=== PATIENT | female | born 1955 | race Caucasian/White ===

== ENCOUNTER → 2016-04-30 | Outpatient (REF) | payer BC | LOC: M SFHCWAGY 12:35 | PROVIDERS: ATTEND Nurse Practitioner Women's Health | DX: Z12.4 Encounter for screening for malignant neoplasm of cervix (principal); N88.8 Other specified noninflammatory disorders of cervix uteri ==

== ENCOUNTER → 2016-08-06 | Outpatient (CLI) | payer BC ==
--- NOTE | 2016-08-06 10:03 | REP ---
UNILATERAL MAMMOGRAM RIGHT BREAST: Unilateral mammogram right breast performed in this patient with a history of left breast cancer and mastectomy. Comparison 08/03/2015 as well as other prior exams. Mild scattered fibroglandular tissue is unchanged. There is no new mass or clustered microcalcifications. IMPRESSION: ACR 1 negative mammogram right breast in this patient status post left mastectomy. Suggest followup mammogram in one year. This mammogram was interpreted with the aid of an FDA-approved computer-aided detection system. The patient states she/he had a clinical breast exam in 04/2016. The patient letter being requested is M1. Signed by Johnathan Liu MD 08/06/2016 05:41 P
--- NOTE | 2016-08-07 09:22 | DEXA ---
AP SPINE L1 - L4 0.970 -1.8 -0.7 LT FEMUR TOTAL 0.825 -1.5 -0.6 RT FEMUR TOTAL 0.862 -1.2 -0.3 TOTAL BODY TOTAL OTHER DUAL FEMUR FRAX* ASSESSMENT Risk factors: Broken bone as adult. 10 year probability of fracture Major osteoporotic fracture 18.7 % Hip fracture 3.2 % COMMENTS: There is low bone density of the spine and hips. The decreased density of the spine does represent a significant change. The decreased density of the left hip does not represent a significant change. The decreased density of the right hip does not represent a significant change. The density of the spine has decreased 17.6% since the initial exam on 2003. The spine density has decreased 5.0% since the most recent exam on 07/26/2014. The density of the left hip has decreased 8.4% since the initial exam on 2003. The density of the left hip has decreased 1.3% since the most recent exam on . The density of the right hip has decreased 4.3% since the initial exam on 2003. The density of the right hip has decreased 0.8% since the most recent exam on . FOLLOW-UP: Recommendation for the next bone density exam: 2 years. LUZMARIA
== END ==
LOC: M WHC 08:42
PROVIDERS: ATTEND Nurse Practitioner Women's Health
DX: Z12.31 Encounter for screening mammogram for malignant neoplasm of breast (principal); Z85.3 Personal history of malignant neoplasm of breast; Z90.12 Acquired absence of left breast and nipple; Z13.820 Encounter for screening for osteoporosis; Z78.0 Asymptomatic menopausal state
CPT/HCPCS: 77080; G0202

== ENCOUNTER → 2017-09-09 | Outpatient (CLI) | payer BC | LOC: M WHC 09:01 | DX: Z12.31 Encounter for screening mammogram for malignant neoplasm of breast (principal); Z85.3 Personal history of malignant neoplasm of breast; Z90.12 Acquired absence of left breast and nipple; Z92.21 Personal history of antineoplastic chemotherapy | CPT/HCPCS: 77067 ==

== ENCOUNTER → 2017-09-09 | Outpatient (REF) | payer BC | LOC: M SFHCWAGY 12:43 | DX: Z12.4 Encounter for screening for malignant neoplasm of cervix (principal) | CPT/HCPCS: G0123 ==

== ENCOUNTER → 2018-09-09 | Outpatient (CLI) | payer BC ==
[~2018-09-09] MED LIST: CLOB0.0526 TOP; FISH120016 PO; MAGN250T7 PO; OMEG350C PO; VITA200016 PO
--- NOTE | 2018-09-09 11:12 | REP ---
UNILATERAL MAMMOGRAM RIGHT BREAST WITH 3D TOMOSYNTHESIS: HISTORY: Left breast cancer and mastectomy. Unilateral mammogram right breast performed with 3D tomosynthesis. Comparison is made with multiple prior exams, the most recent 22/07/2017. Mild scattered fibroglandular tissue appears unchanged. No new mass or clustered microcalcifications are seen. IMPRESSION: BIRADS 1: BI-RADS/ACR category 1 mammogram. Negative Mammogram. ACR 1 negative mammogram right breast in this patient status post left mastectomy. Suggest followup mammogram in one year. This mammogram was interpreted with the aid of an FDA-approved computer-aided detection system. A. Negative x-ray reports should not delay biopsy if a dominant or clinically suspicious mass is present. B. Four to eight percent of cancers are not identified by x-ray. C. Adenosis and dense breasts may obscure an underlying neoplasm. The patient states she/he had a clinical breast exam in September 2018. The patient letter being requested is M1
== END ==
LOC: M WHC 09:21
PROVIDERS: ATTEND Nurse Practitioner Women's Health
DX: Z12.31 Encounter for screening mammogram for malignant neoplasm of breast (principal); Z90.12 Acquired absence of left breast and nipple; Z85.3 Personal history of malignant neoplasm of breast

== ENCOUNTER → 2019-06-03 | Outpatient (REF) | payer BC | LOC: M LAB REF 16:52 | PROVIDERS: ATTEND Nurse Practitioner Adult Health | DX: R71.8 Other abnormality of red blood cells (principal); D72.819 Decreased white blood cell count, unspecified ==

== ENCOUNTER → 2019-10-08 | Outpatient (REF) | payer BC ==
[~2019-10-08] MED LIST changes: +CETI10CA13 PO; +VITA1CHW7 PO; +VITATAB64 PO
== END ==
LOC: M SFHCWAGY 08:58
PROVIDERS: ATTEND Nurse Practitioner Women's Health
DX: Z12.4 Encounter for screening for malignant neoplasm of cervix (principal)

== ENCOUNTER → 2019-10-08 | Outpatient (CLI) | payer BC ==
[~2019-10-08] MED LIST changes: -CETI10CA13 PO; -VITATAB64 PO
--- NOTE | 2019-10-08 11:29 | REPMRS ---
Patient History The patient states she had a clinical breast exam in October 2019. No known family history of cancer. Malignant mastectomy of the left breast, 2004. Chemotherapy. Digital Woman Screen Mammo: October 08, 2019 - Exam #: [id number] Bilateral CC and MLO view(s) were taken. Technologist: Nusrat Gonzales, Technologist Prior study comparison: September 09, 2018, bilateral digital woman screen mammo performed at [facility]. September 09, 2017, digital woman screen mammo performed at [facility]. August 06, 2016, digital woman screen mammo performed at [facility]. FINDINGS: There are scattered fibroglandular densities. The Volpara volumetric breast density category is: B. There has been no change in the appearance of the rigjht breast parenchyma in the interval since the prior examination. No mass, architectural distortion, or microcalcific grouping has developed. No suspicious finding. 3-D tomosynthesis shows no additional findings. Assessment: BI-RADS/ACR category 2 mammogram. Benign Findings. Recommendation Routine screening mammogram of the right breast in 1 year. This mammogram was interpreted with the aid of an FDA-approved computer-aided dectection system. Electronically Signed By: Umberto Christianson MD 10/08/19 [id number]
== END ==
LOC: M WHC 10:21
PROVIDERS: ATTEND Nurse Practitioner Women's Health
DX: Z12.31 Encounter for screening mammogram for malignant neoplasm of breast (principal); Z90.12 Acquired absence of left breast and nipple; Z85.3 Personal history of malignant neoplasm of breast

== ENCOUNTER → 2020-03-15 | Outpatient (CLI) | payer SELFPAY ==
[~2020-03-15] MED LIST changes: +CETI10CA13 PO; +VITATAB64 PO
== END ==
LOC: M LABCAHC 11:55
PROVIDERS: ATTEND Pediatrics
DX: Z11.59 Encounter for screening for other viral diseases (principal)

== ENCOUNTER → 2020-11-23 | Outpatient (CLI) | payer MEDICARE ==
[~2020-11-23] MED LIST changes: +D31000TA2 PO
--- NOTE | 2020-11-23 14:27 | REP ---
INDICATION: SCR MAMMO/S/P L MASTECTOMY. COMPARISON: Multiple TECHNIQUE: Digital screening mammography was carried out on the right breast in the CC and MLO projections using 2D and 3D modalities and compared to the prior exams. By history, the patient has no complaints of a palpable breast abnormality or other significant breast complaints. FINDINGS: The right breast is unchanged in size and shape. There are no alfredo soft tissue densities or spiculated masses. There is no internal architectural distortion. Stable benign calcifications are seen bilaterally. There is no skin thickening or nipple retraction. The Volpara volumetric breast density pattern is b. IMPRESSION: BIRADS/ACR category 2 benign findings. There is no evidence of malignant alteration of the right breast.. This mammogram was interpreted with the aid of an FDA-approved computer-aided detection system. The patient states she had a clinical breast exam in November 2020. The patient letter being requested is M1. RECOMMENDATION: Repeat screening mammography recommended 1 year (for women over 40). <Electronically signed by Des Melendez > 11/23/20 [id number]
--- NOTE | 2020-11-23 16:33 | DEXAMM ---
INDICATION: M85.80 OSTEOPENIA/Z78.0 POSTMENOPAUSAL. COMPARISON: 08/06/2016 as well as other prior exams. TECHNIQUE: Bone density was measured using dual-energy x-ray absorptiometry (DEXA). FINDINGS: AP SPINE L1-L4 BMD 0.944 g/cm2 Young Adult T-Score -2.0 Age Matched Z-Score -0.4. LT FEMUR, TOTAL BMD 0.846 g/cm2 Young Adult T-Score -1.3 Age Matched Z-Score -0.1. LT NECK BMD 0.759 g/cm2 Young Adult T-Score -2.0 Age Matched Z-Score -0.6. RT FEMUR, TOTAL BMD 0.858 g/cm2 Young Adult T-Score -1.2 Age Matched Z-Score 0.0. RT NECK BMD 0.795 g/cm2 Young Adult T-Score -1.7 Age Matched Z-Score -0.3. IMPRESSION: There is low bone density of the spine. There is low bone density of the left hip. There is low bone density of the right hip. The density of the spine has decreased 19.8% since the initial exam on 10/25/2003. The density of the spine decreased 2.7% since most recent exam on 08/06/2016. The density of the left hip has decreased 6.1% since initial exam on 10/25/2003. The density of the left hip has increased 2.5% since most recent exam on 08/06/2016. The density of the right hip has decreased 4.8% since the initial exam on 10/25/2003. The density of the right hip has decreased 0.5% since the most recent exam on 08/06/2016. FOLLOW-UP: Recommendation for the next bone density exam: 2 years. <Electronically signed by Johnathan Liu > 11/23/20 [id number]
== END ==
LOC: M WHC 12:47
PROVIDERS: ATTEND Nurse Practitioner Women's Health
DX: Z12.31 Encounter for screening mammogram for malignant neoplasm of breast (principal); Z90.12 Acquired absence of left breast and nipple; M85.80 Other specified disorders of bone density and structure, unspecified site; Z78.0 Asymptomatic menopausal state; R92.1 Mammographic calcification found on diagnostic imaging of breast

== ENCOUNTER → 2022-02-11 | Outpatient (CLI) | payer BC, MEDICARE ==
[~2022-02-11] MED LIST changes: -D31000TA2 PO; +VITA100093 PO
== END ==
LOC: M LABSMTC 09:35
PROVIDERS: ATTEND Anesthesiology
DX: Z20.828 Contact with and (suspected) exposure to other viral communicable diseases (principal); Z11.59 Encounter for screening for other viral diseases

== ENCOUNTER 2022-08-13 12:39 | Day surgery (SDC) | payer BC, MEDICARE ==
[~2022-08-13] VITALS: Ht 165.1 cm; Wt 74.8 kg
[~2022-08-13 12:39] MED LIST changes: +ASPI81TA26 PO; +NS 1,000 ML IV ONE
[2022-08-13] MEDS ORDERED: LIDOCAINE 2% 100MG/5ML SDV (FOR ANES.) As Ordered ONE (14:35)
[2022-08-13] MEDS ORDERED: propofoL 200 MG/20 ML VIAL As Ordered ONE (14:35)
[2022-08-13 15:10] VITALS: BP 130/63
== END 2022-08-13 15:22 | disposition home or self-care (01) ==
LOC: M OPP 12:39
PROVIDERS: ATTEND Internal Medicine Gastroenterology
DX: Z80.0 Family history of malignant neoplasm of digestive organs (principal); K64.0 First degree hemorrhoids; Z79.82 Long term (current) use of aspirin; Z79.899 Other long term (current) drug therapy; Z88.4 Allergy status to anesthetic agent

== ENCOUNTER → 2022-09-20 | Outpatient (CLI) | payer MEDICARE ==
[~2022-09-20] MED LIST changes: -NS 1,000 ML IV ONE
[2022-09-20 11:40] LABS: BASO % 0.9 % (0.0-1.0); EOS # 0.1 10^3/uL (0.0-0.5); EOS % 3.1 % (0.0-3.0); HEMATOCRIT 42.6 % (36.0-47.0); HEMOGLOBIN 13.9 g/dl (12.0-15.5); LYMPH # 1.5 10^3/uL (1.5-5.0); LYMPH % 32.7 % (24.0-44.0); MEAN CORPUSCULAR HEMOGLOBIN 33.5 pg (27.0-33.0); MEAN CORPUSCULAR HGB CONC 32.6 g/dl (32.0-36.5); MEAN CORPUSCULAR VOLUME 102.7 fl (80.0-96.0); MONO # 0.5 10^3/uL (0.0-0.8); MONO % 11.2 % (2.0-8.0); NEUTROPHILS # 2.3 10^3/uL (1.5-8.5); NEUTROPHILS % 51.7 % (36.0-66.0); PLATELET COUNT, AUTOMATED 238 10^3/uL (150-450); RED BLOOD COUNT 4.15 10^6/uL (4.00-5.40); WHITE BLOOD COUNT 4.5 10^3/uL (4.0-10.0)
[2022-09-20 12:01] LABS: ALBUMIN 3.8 G/DL (3.2-5.2); ALKALINE PHOSPHATASE 80 U/L (46-116); ALT/SGPT 29 U/L (7.0-40); AST/SGOT 19 U/L (<34); BILIRUBIN,TOTAL 1.5 MG/DL (0.3-1.2); BLOOD UREA NITROGEN 23 MG/DL (9-23); CALCIUM LEVEL 8.8 MG/DL (8.3-10.6); CARBON DIOXIDE LEVEL 30 MMOL/L (20-31); CHLORIDE LEVEL 105 MMOL/L (98-107); CREATININE FOR GFR 0.69 MG/DL (0.55-1.30); GLOMERULAR FILTRATION RATE > 60.0 (>45); GLUCOSE, FASTING 89 MG/DL (74-106); POTASSIUM SERUM 4.5 MMOL/L (3.5-5.1); SODIUM LEVEL 138 MMOL/L (136-145); TOTAL PROTEIN 6.7 G/DL (5.7-8.2)
== END ==
LOC: M LAB 09:21
PROVIDERS: ATTEND Internal Medicine Medical Oncology
DX: Z85.3 Personal history of malignant neoplasm of breast (principal)

== ENCOUNTER → 2023-09-06 | Outpatient (REF) | payer MEDICARE | LOC: M LAB REF 16:24 | PROVIDERS: ATTEND Nurse Practitioner Family | DX: G45.4 Transient global amnesia (principal) ==